=== PATIENT | male | born 1955 | race Caucasian/White ===

== ENCOUNTER 2018-01-23 16:53 | Observation (INO) | payer OTHER ==
[~2018-01-23] VITALS: Ht 172.7 cm; Wt 54.6 kg
[~2018-01-23 16:53] MED LIST: ALEVE220 MG PO; AMLODIPINE BESY10 MG PO; DILANTIN100 MG PO; Dilantin PO; Ecotrin PO; KEPPRA750 MG PO; LEVETIRACETAM500 MG PO; LEVETIRACETAM750 MG PO; LEVOTHYROXINE75 MCG PO; METOPROLOL TART50 MG PO; MOBIC15 MG PO; NICOTINE PATCH1 EAC1 TD; NICOTINE PATCH1 EAC2 TD; NORCO 5/3251 TABLET PO; PHENYTEK200 MG PO; PRAVASTATIN SOD10 MG PO; QUETIAPINE FUMA25 MG PO; Remove Nicotine Patch TD; ST. JOSEPH ASPI81 MG PO; SYNTHROID100 MCG PO; SYNTHROID50 MCG PO; Toprol XL PO; Zocor PO
[2018-01-23 19:00] LABS: BASOPHIL (%) 0.2 % (0-1); EOSINOPHIL (%) 0.1 % (0-5); HEMATOCRIT 35.5 % (38.0-50.0); HEMOGLOBIN 12.2 G/DL (12.5-16.6); IMMATURE GRANULOCYTE (%) 0.7 % (0.0-0.7); LYMPHOCYTE (%) 10.1 % (15-42); MCH 29.7 PG (29.0-34.0); MCHC 34.4 G/DL (30.0-36.0); MCV 86.4 FL (86-99); MONOCYTE (%) 5.7 % (3-12); MONOCYTE COUNT 1.1 K/uL (0-0.8); NEUTROPHIL (%) 83.2 % (45-76); NEUTROPHIL COUNT 16.4 K/uL (1.8-6.4); PLATELET COUNT 210 K/uL (156-360); RBC DIS.WIDTH-CV 12.9 % (11.8-14.6); RBC DIS.WIDTH-SD 40.5 % (39-53); RED BLOOD COUNT 4.11 M/uL (4.00-5.50); WHITE BLOOD COUNT 19.7 K/uL (4.1-10.2)
[2018-01-23 19:09] LABS: INTER. NORMALIZED RATIO 1.2
[2018-01-23 19:12] LABS: PTT 32.3 SEC (25-37)
[2018-01-23 19:19] LABS: CHLORIDE 100 mEq/L (99-109); POTASSIUM 4.3 mEq/L (3.7-5.4); SODIUM 133 mEq/L (136-147)
[2018-01-23 19:21] LABS: GLUCOSE 92 mg/dL (70-99)
[2018-01-23 19:22] LABS: TROP-I INTERPRETATION NEGATIVE; TROPONIN-I 0.02 ng/mL (0.0-0.30)
[2018-01-23 19:25] LABS: CREATININE 0.8 mg/dL (0.6-1.3); GFR ESTIMATE (CALCULATED) > 59 mL/min/ (58.99-99999)
[2018-01-23 19:26] LABS: UREA NITROGEN (BUN) 17 mg/dL (9-23)
[2018-01-23 20:07] LABS: HDL CHOLESTEROL 34 MG/DL (Desirable>=40); LDL CHOLESTEROL 56 mg/dL (Desirable<100); NON-HDL CHOLESTEROL 66 mg/dL (Desirable<160); TOTAL CHOLESTEROL 100 mg/dL (Desirable<200); TRIGLYCERIDES 50 MG/DL (Normal: <150)
[2018-01-23 20:45] LABS: APPEARANCE CLEAR ((CLEAR)); BILIRUBIN NEGATIVE; BLOOD NEGATIVE; COLOR YELLOW ((YELLOW)); GLUCOSE (STRIP) NEGATIVE; KETONES 5; LEUKOCYTES NEGATIVE; NITRITE NEGATIVE; PROTEIN (STRIP) NEGATIVE; SPECIFIC GRAVITY 1.025 (1.000-1.030); UCUL ADDED? NO; UROBILINOGEN 0.2 MG/DL (0.2-1.0)
[2018-01-23] MEDS ORDERED: LEVETIRACETAM1000 MG PO (21:55)
[2018-01-23] MEDS ORDERED: LEVOTHYROXINE50 MCG PO (21:55)
[2018-01-23] MEDS ORDERED: METOPROLOL TAR100 MG PO (21:55)
[2018-01-23] MEDS ORDERED: AMLODIPINE BESY10 MG PO (21:55)
[2018-01-24 02:33] VITALS: BP 150/75
[2018-01-24 07:55] VITALS: BP 115/65
[2018-01-24 10:28] LABS: HEMOGLOBIN A1c (GLYCOHEMOGLOB) 5.3 % (Below 5.7)
[2018-01-24 16:23] VITALS: BP 114/58
[2018-01-24 20:25] VITALS: BP 123/60
[2018-01-24 23:43] VITALS: BP 105/58
[2018-01-25 04:08] VITALS: BP 122/63
[2018-01-25 06:10] LABS: BASOPHIL (%) 0.5 % (0-1); BASOPHIL COUNT 0.1 K/uL (0-0.1); EOSINOPHIL (%) 1.2 % (0-5); EOSINOPHIL COUNT 0.1 K/uL (0-0.3); HEMATOCRIT 35.7 % (38.0-50.0); HEMOGLOBIN 11.9 G/DL (12.5-16.6); IMMATURE GRANULOCYTE (%) 0.9 % (0.0-0.7); LYMPHOCYTE (%) 22.4 % (15-42); LYMPHOCYTE COUNT 2.6 K/uL (1.0-2.8); MCH 29.2 PG (29.0-34.0); MCHC 33.3 G/DL (30.0-36.0); MCV 87.5 FL (86-99); MONOCYTE (%) 9.3 % (3-12); MONOCYTE COUNT 1.1 K/uL (0-0.8); NEUTROPHIL (%) 65.7 % (45-76); NEUTROPHIL COUNT 7.7 K/uL (1.8-6.4); PLATELET COUNT 189 K/uL (156-360); RBC DIS.WIDTH-SD 41.5 % (39-53); RED BLOOD COUNT 4.08 M/uL (4.00-5.50); WHITE BLOOD COUNT 11.7 K/uL (4.1-10.2)
[2018-01-25 06:28] LABS: CHLORIDE 100 MEQ/L (99-109); CREATININE 0.8 MG/DL (0.6-1.3); GFR ESTIMATE (CALCULATED) > 59 mL/min/ (58.99-99999); GLUCOSE 87 mg/dL (70-99); POTASSIUM 3.8 MEQ/L (3.7-5.4); SODIUM 132 MEQ/L (136-147); UREA NITROGEN (BUN) 18 mg/dL (9-23)
[2018-01-25 07:41] VITALS: BP 132/61
[2018-01-25] MEDS ORDERED: ASPIR 8181 M1 PO (11:22)
[2018-01-25] MEDS ORDERED: ATORVASTATIN CA40 MG PO (11:22)
[2018-01-25 11:50] VITALS: BP 117/57
[2018-01-25 16:44] VITALS: BP 115/61
[2018-01-25 20:47] VITALS: BP 136/65
[2018-01-26 00:16] VITALS: BP 129/66
[2018-01-26 04:00] VITALS: BP 126/70
[2018-01-26 08:00] VITALS: BP 115/69
[2018-01-26 09:00] VITALS: BP 104/65
== END 2018-01-26 10:10 | disposition home or self-care (01) ==
LOC: EME → EDBD 16:53 → ENRESERV 22:36 → 5SOUTH 22:36 → EDOF 22:36 → ENRESERV 23:26 → 5SOUTH 01-24 02:19
PROVIDERS: Emergency Medicine; Internal Medicine
DX: G45.9 Transient cerebral ischemic attack, unspecified (principal); I10 Essential (primary) hypertension; G40.909 Epilepsy, unspecified, not intractable, without status epilepticus; D72.829 Elevated white blood cell count, unspecified; Z86.73 Personal history of transient ischemic attack (TIA), and cerebral infarction without residual deficits; Z85.12 Personal history of malignant neoplasm of trachea; Z80.8 Family history of malignant neoplasm of other organs or systems; F03.90 Unspecified dementia, unspecified severity, without behavioral disturbance, psychotic disturbance, mood disturbance, and anxiety; Z91.040 Latex allergy status; Z87.891 Personal history of nicotine dependence; H54.61 Unqualified visual loss, right eye, normal vision left eye
CPT/HCPCS: 70450; 70551; 71045; 80048; 80061; 81003; 82140; 83036; 83605; 84484; 85025; 85610; 85730; 87040; 93005; 93306; 93880; 99281; 99285; G0378; G0480; G8978 GP CJ; G8979 GP CH; G8979 GP CN; G8980 GP CI; J0696; J1650